=== PATIENT | female | born 1940 | race Caucasian/White ===

== ENCOUNTER 2021-07-04 16:21 | Emergency (ER) | payer OTHER ==
[~2021-07-04] VITALS: Ht 152.4 cm; Wt 52.2 kg
[2021-07-04 16:27] VITALS: BP_SYST 171
--- NOTE | 2021-07-04 16:48 | NUR ---
Patient to ER bed H1 to gown for evaluation. Side rails up.
--- NOTE | 2021-07-04 16:50 | NUR ---
Pt brought by ambulance A&Ox1, Hx of dementia, pt presents to ER post witnessed mechanical fall , hit back of head but no KO, VSS, skin pink and warm, cap refill <3, respirations even and unlabored, will cont to monitor.
--- NOTE | 2021-07-04 16:58 | NUR ---
Dr Barbour evaluating patient at this time
--- NOTE | 2021-07-04 17:15 | NUR ---
Lab at bedside for blood draw.
[2021-07-04 17:27] LABS: BASOPHILS # (AUTO) 0.1 K/uL (0.0-0.2); BASOPHILS % (AUTO) 1.8 % (0.0-2.0); EOSINOPHILS # (AUTO) 0.2 K/uL (0.0-0.4); EOSINOPHILS % (AUTO) 4.9 % (0.0-4.0); HEMATOCRIT 32.7 % (36-48); HEMOGLOBIN 11.2 g/dL (12.0-16.0); LYMPHOCYTES # (AUTO) 1.8 K/uL (1.0-5.5); LYMPHOCYTES % (AUTO) 35.4 % (20.5-51.5); MEAN CORPUSCULAR HEMOGLOBIN 32 pg (27-31); MEAN CORPUSCULAR HGB CONC 34 % (32-36); MEAN CORPUSCULAR VOLUME 93 fL (79.0-98.0); MONOCYTES # (AUTO) 0.5 K/uL (0.0-1.0); MONOCYTES % (AUTO) 10.3 % (1.7-9.3); NEUTROPHILS # (AUTO) 2.4 K/uL (1.8-7.7); NEUTROPHILS % (AUTO) 47.6 % (40.0-70.0); PLATELET COUNT (AUTO) 160 K/uL (130-430); RED CELL DISTRIBUTION WIDTH 14.9 % (9.0-15.0); WHITE BLOOD COUNT (AUTO) 5.1 K/uL (4.8-10.8)
[2021-07-04 17:35] LABS: ANION GAP 4 (5-15); CALCIUM 8.4 mg/dL (8.4-11.0); CHLORIDE 106 mmol/L (98-107); CREATININE 1.14 mg/dL (0.55-1.30); GLUCOSE 147 mg/dL (70-99); POTASSIUM 3.8 mmol/L (3.5-5.1); SODIUM SERUM 141 mmol/L (136-145); UREA NITROGEN, BLOOD 16 mg/dL (8-21)
[2021-07-04 17:44] LABS: ALANINE AMINOTRANSFERASE 41 U/L (12-78); ALBUMIN 3.1 g/dL (3.4-4.8); ASPARTATE AMINOTRANSFERASE 25 U/L (10-37); TOTAL BILIRUBIN 0.3 mg/dL (0.0-1.0)
[2021-07-04] MEDS ORDERED: MAGNESIUM OXIDE 400 MG TABLET PO ONE (18:45)
--- NOTE | 2021-07-04 19:10 | NUR ---
Care of patient endorsed to FABIAN Porter. Pt currently resting in hallway bed, no acute distress noted.
[2021-07-04 19:35] LABS: BILIRUBIN,URINE NEGATIVE (NEGATIVE); CLARITY/URINE CLEAR (CLEAR); COLOR,URINE YELLOW (YELLOW); GLUCOSE,URINE NEGATIVE (NEGATIVE); KETONES,URINE NEGATIVE (NEGATIVE); LEUKOCYTE ESTERASE ,URINE NEGATIVE (NEGATIVE); NITRITE, URINE NEGATIVE (NEGATIVE); PROTEIN URINE 2+ (NEGATIVE); UROBILINOGEN,URINE 0.2 (0.2-1.0)
[2021-07-04 19:55] LABS: BLOOD, URINE TRACE (NEGATIVE)
[2021-07-04 20:22] LABS: BACTERIA,URINE RARE /HPF (None Seen); RBC,URINE 0-3 /HPF (0-3); WBC,URINE NONE SEEN /HPF (0-3)
[2021-07-04 20:29] VITALS: BP_SYST 171
--- NOTE | 2021-07-04 20:30 | NUR ---
Patient given written and verbal discharge instructions and verbalizes understanding. DR. GRAHAM RIVERS MD discussed with patient the results and treatment provided. Patient in stable condition. ID arm band removed. Patient educated on pain management and to follow up with PMD. Pain Scale 0/10. Opportunity for questions provided and answered. Medication side effect fact sheet provided.
== END 2021-07-04 20:29 | disposition home or self-care (01) ==
LOC: SED 16:21
DX: S09.90XA Unspecified injury of head, initial encounter (principal); R94.31 Abnormal electrocardiogram [ECG] [EKG]; W18.39XA Other fall on same level, initial encounter; Y93.89 Activity, other specified; Y92.89 Other specified places as the place of occurrence of the external cause; Y99.8 Other external cause status
CPT/HCPCS: 36415; 70450-TC; 72125-TC; 76376; 80053; 81000; 84484; 85025; 93005; 99285

== ENCOUNTER 2021-07-09 13:18 | Inpatient (IN) | payer OTHER, SELFPAY ==
[~2021-07-09] VITALS: Ht 144.8 cm; Wt 52.2 kg
[2021-07-09 13:25] VITALS: BP_SYST 133
[2021-07-09] MEDS ORDERED: NACL 0.9% 1,000 ML IV ONE (13:30)
--- NOTE | 2021-07-09 13:30 | NUR ---
Patient to ER bed 2 to gown for evaluation. Side rails up. Report given to Sonu PERALTA.
--- NOTE | 2021-07-09 13:40 | NUR ---
DR KING IN TO ASSESS, PT LETHARGIC, AAOX3, CLEAR SPEECH IN FULL COMPLETE SENTECES
[2021-07-09 14:03] LABS: BASOPHILS # (AUTO) 0.1 K/uL (0.0-0.2); BASOPHILS % (AUTO) 2.5 % (0.0-2.0); EOSINOPHILS # (AUTO) 0.2 K/uL (0.0-0.4); EOSINOPHILS % (AUTO) 5.1 % (0.0-4.0); HEMATOCRIT 30.6 % (36-48); HEMOGLOBIN 10.5 g/dL (12.0-16.0); LYMPHOCYTES # (AUTO) 1.2 K/uL (1.0-5.5); MEAN CORPUSCULAR HEMOGLOBIN 32 pg (27-31); MEAN CORPUSCULAR HGB CONC 34 % (32-36); MEAN CORPUSCULAR VOLUME 93 fL (79.0-98.0); MONOCYTES # (AUTO) 0.4 K/uL (0.0-1.0); MONOCYTES % (AUTO) 8.1 % (1.7-9.3); NEUTROPHILS # (AUTO) 2.6 K/uL (1.8-7.7); NEUTROPHILS % (AUTO) 57.3 % (40.0-70.0); PLATELET COUNT (AUTO) 150 K/uL (130-430); RED CELL DISTRIBUTION WIDTH 14.7 % (9.0-15.0); WHITE BLOOD COUNT (AUTO) 4.6 K/uL (4.8-10.8)
--- NOTE | 2021-07-09 14:05 | NUR ---
CXR, LABS EKG COMPLETED, PT TOLERATED WELL. RESP UNLABORED, EASILY AROUSED
[2021-07-09 14:10] LABS: BILIRUBIN,URINE NEGATIVE (NEGATIVE); CLARITY/URINE CLEAR (CLEAR); COLOR,URINE YELLOW (YELLOW); GLUCOSE,URINE NEGATIVE (NEGATIVE); KETONES,URINE NEGATIVE (NEGATIVE); LEUKOCYTE ESTERASE ,URINE NEGATIVE (NEGATIVE); NITRITE, URINE NEGATIVE (NEGATIVE); PROTEIN URINE 1+ (NEGATIVE); UROBILINOGEN,URINE 0.2 (0.2-1.0)
[2021-07-09 14:17] LABS: BLOOD, URINE TRACE (NEGATIVE)
[2021-07-09 14:19] LABS: BACTERIA,URINE None Seen /HPF (None Seen); MUCUS,URINE None Seen /LPF (None Seen); RBC,URINE 0-3 /HPF (0-3); WBC,URINE NONE SEEN /HPF (0-3)
[2021-07-09 14:28] LABS: ANION GAP 10 (5-15); CALCIUM 8.4 mg/dL (8.4-11.0); CHLORIDE 107 mmol/L (98-107); CREATININE 1.22 mg/dL (0.55-1.30); GLUCOSE 143 mg/dL (70-99); POTASSIUM 3.7 mmol/L (3.5-5.1); SODIUM SERUM 144 mmol/L (136-145); UREA NITROGEN, BLOOD 18 mg/dL (8-21)
[2021-07-09 14:32] LABS: ALANINE AMINOTRANSFERASE 24 U/L (12-78); ASPARTATE AMINOTRANSFERASE 18 U/L (10-37); TOTAL BILIRUBIN 0.2 mg/dL (0.0-1.0)
--- NOTE | 2021-07-09 14:39 | NUR ---
CALM, ALERT, RESP UNLABORED, SKIN WARM AND DRY. COMMUNICATES CLEARLY
[2021-07-09] MEDS ORDERED: MAGNESIUM SULFATE 1 GM/2 ML VIAL IVP ONE (15:00)
[2021-07-09 15:25] LABS: FREE T4 (FREE THYROXINE) 1.1 ng/dl (0.8-1.5); THYROID STIMULATING HORMONE 2.01 uIu/mL (0.36-3.74)
[2021-07-09 15:26] LABS: ACETAMINOPHEN < 1 ug/mL (1-30)
--- NOTE | 2021-07-09 15:54 | NUR ---
Admit to M/S UNDER PALIWAL DX SYNCOPE
[2021-07-09] MEDS ORDERED: NALOXONE HCL 0.4 MG/ML AMP (NARCAN) IVP PRN ×2 (16:15)
[2021-07-09] MEDS ORDERED: HYDROcodone/ACETAMIN 10-325 MG TAB PO PRN (16:15)
[2021-07-09] MEDS ORDERED: HYDROcodone/ACETAMIN 5-325 MG TAB (NORCO/ VICODIN) PO PRN (16:15)
[2021-07-09] MEDS ORDERED: ACETAMINOPHEN 325 MG TABLET PO PRN (16:15)
--- NOTE | 2021-07-09 16:39 | NUR ---
DR MCDOWELL AT BEDSIDE TO ASSESS
[2021-07-09] MEDS ORDERED: LORA-259 PO (17:10)
[2021-07-09] MEDS ORDERED: OMEP40CA20 PO (17:10)
[2021-07-09] MEDS ORDERED: GALA4TAB PO (17:10)
[2021-07-09] MEDS ORDERED: METO50TA7 PO (17:10)
[2021-07-09] MEDS ORDERED: MORP15TA60 PO (17:10)
[2021-07-09] MEDS ORDERED: POTA-88 PO (17:10)
[2021-07-09] MEDS ORDERED: ISO10 PO (17:10)
[2021-07-09] MEDS ORDERED: ESCI10TA PO (17:10)
[2021-07-09] MEDS ORDERED: OXYC10TA56 PO (17:10)
[2021-07-09] MEDS ORDERED: ROSU40TA PO (17:10)
[2021-07-09] MEDS ORDERED: NIFE60TA83 PO (17:10)
[2021-07-09] MEDS ORDERED: CLOP75TA32 PO (17:10)
[2021-07-09] MEDS ORDERED: HYDR-3698 PO (17:10)
--- NOTE | 2021-07-09 17:55 | NUR ---
CALM, ALERT, INCREASED MENTTION RESP UNLABORED, NO DISTRESS
--- NOTE | 2021-07-09 18:35 | NUR ---
REPOSITIONED FOR COMFORT.
--- NOTE | 2021-07-09 18:58 | NUR ---
CALL TO DAUGHTER WHO IS IN ROUTE TO DISCUSS ADMISSION . PT REQUESTING TO GO HOME
--- NOTE | 2021-07-09 19:12 | NUR ---
DAUGHTER AT BEDSIDE
--- NOTE | 2021-07-09 19:15 | NUR ---
Received report from FABIAN Ascencio and continue care of patient.
--- NOTE | 2021-07-09 20:11 | NUR ---
Assisted patient to bedside commode.
--- NOTE | 2021-07-09 20:42 | NUR ---
Patient resting quietly. No acute distress noted. Vital signs within normal range.
--- NOTE | 2021-07-09 21:06 | NUR ---
Patient will be admitted to care of Dr. Vila. Admitted to TELE unit. Will go to room 103A. Belongings list completed. Complete and up to date summary report printed. SBAR report to be given at bedside with opportunity for questions.
--- NOTE | 2021-07-09 21:30 | NUR ---
ADMISSION NOTE Received patient from ER via gurtheron, received report from march. Patient admitted with diagnosis of syncope. Patient oriented to hospital routine, call light, toileting and safety-patient verbalized understanding.
[2021-07-09 22:19] VITALS: BP_SYST 136
[2021-07-09 23:01] VITALS: BP_SYST 136
[2021-07-10 00:19] VITALS: BP_SYST 159
--- NOTE | 2021-07-10 00:58 | NUR ---
PAGED FOR CONSULT JEANNE MCGHEE ORDERING PHYSICIAN: DR. MCDOWELL REASON FOR CONSULT: NEURO DIALED: [phone] SPOKE TO: CALLED MULTIPLE TIMES NO ANSWER AND UNABLE TO LEAVE VOICEMAIL DUE TO MAILBOX FULL
--- NOTE | 2021-07-10 01:02 | NUR ---
PAGED FOR CONSULT RAFITA GREER ORDERING PHYSICIAN: REASON FOR CONSULT: SYNCOPE DIALED:[phone] SPOKE TO: MALORIE ESPANA STATED THAT SHE CANNOT PAGED RAFITA GREER HE WAS NOT AVAILABLE TO BE PAGED DUE TO HER NOT HAVING ACCESS TO HIM. LOOKED UP DOCTOR IN HOSPITAL PHYSICIANS LIST AND NO NARDA GREER IN PACKET.
[2021-07-10] MEDS: D5/0.45 NS 1,000 ML IV SCH ×2 (02:15→12:17)
--- NOTE | 2021-07-10 06:12 | NUR ---
PAGED FOR CONSULT JEANNE MCGHEE ORDERING PHYSICIAN: DR. MCDOWELL REASON FOR CONSULT: NEURO DIALED: [phone] SPOKE TO: SENT TEXT TO DIRECTLY
[2021-07-10 06:56] LABS: EOSINOPHILS # (AUTO) 0.3 K/uL (0.0-0.4); EOSINOPHILS % (AUTO) 5.1 % (0.0-4.0); HEMATOCRIT 34.7 % (36-48); HEMOGLOBIN 11.9 g/dL (12.0-16.0); LYMPHOCYTES % (AUTO) 20.3 % (20.5-51.5); MEAN CORPUSCULAR HEMOGLOBIN 32 pg (27-31); MEAN CORPUSCULAR HGB CONC 34 % (32-36); MEAN CORPUSCULAR VOLUME 92 fL (79.0-98.0); MONOCYTES # (AUTO) 0.6 K/uL (0.0-1.0); MONOCYTES % (AUTO) 12.3 % (1.7-9.3); NEUTROPHILS # (AUTO) 3.1 K/uL (1.8-7.7); NEUTROPHILS % (AUTO) 62.3 % (40.0-70.0); PLATELET COUNT (AUTO) 157 K/uL (130-430); RED BLOOD CELL COUNT(AUTO) 3.78 MIL/uL (4.2-6.2); RED CELL DISTRIBUTION WIDTH 14.1 % (9.0-15.0)
--- NOTE | 2021-07-10 09:23 | NUR ---
DR ALVAREZ 8TH GRADE TEACHER CAME
[2021-07-10 09:24] VITALS: BP_SYST 171
[2021-07-10] MEDS ORDERED: DOCUSATE SODIUM 100 MG CAPSULE PO PRN (09:45)
--- NOTE | 2021-07-10 10:00 | NUR ---
NEW IV SITE PLACED ON THE RT FOREARM #22. PATENT/DRY.
[2021-07-10 10:48] LABS: ALANINE AMINOTRANSFERASE 24 U/L (12-78); ALBUMIN 3.1 g/dL (3.4-4.8); ANION GAP 8 (5-15); ASPARTATE AMINOTRANSFERASE 21 U/L (10-37); CALCIUM 8.8 mg/dL (8.4-11.0); CHLORIDE 105 mmol/L (98-107); CREATININE 0.98 mg/dL (0.55-1.30); GLUCOSE 85 mg/dL (70-99); PHOSPHORUS 3.6 mg/dL (2.7-4.5); POTASSIUM 3.4 mmol/L (3.5-5.1); SODIUM SERUM 142 mmol/L (136-145); TOTAL BILIRUBIN 0.2 mg/dL (0.0-1.0); UREA NITROGEN, BLOOD 12 mg/dL (8-21)
--- NOTE | 2021-07-10 10:53 | NUR ---
WORKING ON SNF BED FOR TODAY. LEFT VM WITH DTR ROXY TO DETERMINE IF PT HAS BEEN VACCINATED. IF DTR VISITS AT THE HOSPITAL, PLEASE HAVE HER CALL ME CAMMIE AT [phone]
--- NOTE | 2021-07-10 11:00 | NUR ---
IV ACCESS PULLED OUT. PLACED A NEW ONE ON THE LEFT FOREARM #22.
[2021-07-10] MEDS: LORazepam 2 MG/ML VIAL IVP PRN ×2 (12:54→17:45)
--- NOTE | 2021-07-10 13:00 | NUR ---
IV ACCESS PULLED OUT AGAIN. PLACED A NEW ONE ON THE RT FOREARM #22.
[2021-07-10 13:21] VITALS: BP_SYST 192
--- NOTE | 2021-07-10 15:59 | NUR ---
radhika called update for her mom today. said still thinking of what snf her mom will go to. assisted to come back to bed from the window. patient bit weak while walking.
[2021-07-10 16:02] VITALS: BP_SYST 164
--- NOTE | 2021-07-10 17:00 | NUR ---
ROXY MEJIA CALLED FOR THE RESTRAINT AND SEEN PATIENT IN THE FLOOR SITTING DOWN UNDER THE BEDSIDE TABLE. NEAR THE WINDOW.
--- NOTE | 2021-07-10 17:45 | NUR ---
NEW IV ACCESS PLACED ON THE LEFT WRIST #22.
--- NOTE | 2021-07-10 18:00 | NUR ---
PUT BACK ON SOFT WRIST RESTRAINT. TAE TRIED TO FED THE PATIENT, BUT AT FIRST REFUSES. NOW EATING LITTLE BY LITTLE
--- NOTE | 2021-07-10 18:01 | NUR ---
CALLED DR JEREMIAS BENDER FOR PATIENT FOUND ON THE FLOOR, VITALS SIGNS STABLE AFEBRILE BP 150/64, HR 96, RESPIRATION 20, TEMP 97. AWAITING TO CALL BACK. NO BLEEDING NOR PAIN NOTED. PATIENT VERBALIZED NO PAIN NOTED. ABLE TO PUT A NEW IV ACCESS ON THE LEFT WRIST #22. SALINE LOCK. PATENT/DRY
--- NOTE | 2021-07-10 18:18 | NUR ---
DR MCDOWELL CALLED AND NO ORDER MADE SO FAR.
--- NOTE | 2021-07-10 19:26 | NUR ---
ENDORSED TO INCOMING NURSE TALAT PERALTA. HOURLY ROUNDING IMPERATIVE FOR THIS PATIENT. CALL LIGHTS WITHIN REACH. BED LOW POSITION, ALARMED AND LOCKED. WILL CONTINUE TO MONITOR PATIENTS STATUS. 3 SIDE RAILS UP. POST FALL ASSESSMENT DONE. POST FALL HUDDLE DONE.
--- NOTE | 2021-07-10 19:30 | NUR ---
Opening note Pt is lying in bed restless. No s/s of respiratory distress noted. Fall and safety precautions are in place with bed in lowest position and bed alarm on. Soft wrist restraints are in place. Will continue to monitor
[2021-07-10 20:00] VITALS: BP_SYST 165
[2021-07-11] MEDS: LORazepam 2 MG/ML VIAL IVP PRN (00:06)
--- NOTE | 2021-07-11 00:24 | NUR ---
New IV placement right forearm 24G, intact and patent. no s/s of infiltration
[2021-07-11 00:54] VITALS: BP_SYST 163
--- NOTE | 2021-07-11 00:54 | NUR ---
Spoke with Dr Prince regarding pt high blood pressure (164/89). New orders received, will carry out
[2021-07-11] MEDS ORDERED: DIPHENHYDRAMINE INJ 50 MG/ML VIAL IVP ONE (01:00)
[2021-07-11] MEDS ORDERED: hydrALAZINE HCL 20 MG/ML VIAL IVP ONE (01:00)
--- NOTE | 2021-07-11 03:30 | NUR ---
RN rounds Pt is still restless. no s/s of respiratory distress. Fall and safety precautions in place. No needs at this time. Will continue to monitor
[2021-07-11] MEDS: D5/0.45 NS 1,000 ML IV SCH ×3 (05:11→15:20)
--- NOTE | 2021-07-11 06:33 | NUR ---
Closing note Pt is lying in bed still restless. No s/s of acute distress noted. IV site is intact and patent with fluids running at ordered rate. Bed is locked in lowest position with bed in lowest position, bed alarm on and call light within reach. All needs met throughout shift. Will continue to monitor until endorsed to day shift
[2021-07-11 08:00] VITALS: BP_SYST 164
--- NOTE | 2021-07-11 08:00 | NUR ---
Initial Note Patient asleep in bed, wakes to tactile stimuli. Oriented to person and situation. Noted confusion to place and time. Patient vomiting and soiled with urine and BM. Provided justa and oral care and changed patient. Noted restlessness and lethargy, bed locked in lowest position and bed alarm on. Will continue to monitor.
[2021-07-11] MEDS ORDERED: ASPIRIN 325 MG TABLET (ECOTRIN) PO ONE (08:32)
[2021-07-11] MEDS: ONDANSETRON HCL 4 MG/2 ML VIAL IVP PRN ×2 (08:44→18:15)
[2021-07-11] MEDS: CLOPIDOGREL BISULFATE 75 MG TABLET PO SCH ×2 (09:00→10:30)
[2021-07-11] MEDS ORDERED: METOPROLOL SUCCINATE 25 MG TAB.SR.24H (TOPROL XL) PO SCH (09:00)
[2021-07-11] MEDS: NIFEdipine 30 MG TAB.ER.24 PO SCH ×2 (09:00→10:28)
--- NOTE | 2021-07-11 09:15 | NUR ---
MD Rounds Dr. Keene at bedside to see patient.
--- NOTE | 2021-07-11 09:20 | NUR ---
PT Physical therapy at bedside with patient.
[2021-07-11] MEDS ORDERED: CARVEDILOL 6.25 MG TABLET (COREG) PO ONE (10:30)
--- NOTE | 2021-07-11 11:11 | NUR ---
DC Restraints Removed restraints per MD order. Will continue to monitor patient for safety. Continue fall precautions.
--- NOTE | 2021-07-11 14:00 | NUR ---
Notes Patient has room available at [facility]. notified.
[2021-07-11 14:24] LABS: BASOPHILS # (AUTO) 0.1 K/uL (0.0-0.2); BASOPHILS % (AUTO) 0.7 % (0.0-2.0); HEMATOCRIT 41.4 % (36-48); LYMPHOCYTES # (AUTO) 0.8 K/uL (1.0-5.5); LYMPHOCYTES % (AUTO) 4.8 % (20.5-51.5); MEAN CORPUSCULAR HEMOGLOBIN 31 pg (27-31); MEAN CORPUSCULAR HGB CONC 34 % (32-36); MEAN CORPUSCULAR VOLUME 92 fL (79.0-98.0); MONOCYTES # (AUTO) 0.7 K/uL (0.0-1.0); MONOCYTES % (AUTO) 4.1 % (1.7-9.3); NEUTROPHILS # (AUTO) 14.6 K/uL (1.8-7.7); NEUTROPHILS % (AUTO) 90.4 % (40.0-70.0); PLATELET COUNT (AUTO) 185 K/uL (130-430); RED BLOOD CELL COUNT(AUTO) 4.51 MIL/uL (4.2-6.2); RED CELL DISTRIBUTION WIDTH 14.8 % (9.0-15.0); WHITE BLOOD COUNT (AUTO) 16.2 K/uL (4.8-10.8)
[2021-07-11 14:41] VITALS: BP_SYST 192
[2021-07-11 14:47] LABS: ANION GAP 12 (5-15); CALCIUM 8.8 mg/dL (8.4-11.0); CHLORIDE 99 mmol/L (98-107); CREATININE 0.96 mg/dL (0.55-1.30); GLUCOSE 158 mg/dL (70-99); SODIUM SERUM 137 mmol/L (136-145); UREA NITROGEN, BLOOD 12 mg/dL (8-21)
[2021-07-11 15:10] LABS: POTASSIUM 2.8 mmol/L (3.5-5.1)
--- NOTE | 2021-07-11 15:10 | NUR ---
Lab values Received critical lab value of Potassium 2.8 from Kathy. Lacie Keene.
[2021-07-11] MEDS ORDERED: hydrALAZINE HCL 20 MG/ML VIAL IVP PRN (15:15)
[2021-07-11] MEDS ORDERED: hydrALAZINE HCL 25 MG TABLET PO ONE (15:15)
[2021-07-11 15:39] VITALS: BP_SYST 159
--- NOTE | 2021-07-11 15:49 | NUR ---
CRITICAL LAB: Melly from Laboratory called with critical lab value Potassium 2.8. Medical record number and patient name verified. Read back of values done. Dr. Keene notified of value. Will implement orders given at this time. Addendum: 07/11/21 at 1744 by Kristi Chong RN Dr. Keene notified of WBC 16.2. No orders given.
--- NOTE | 2021-07-11 15:49 | NUR ---
HIGH ALERT NOTE: Called Dr. Keene back at identified within the medical roster to verify physician authenticity.
--- NOTE | 2021-07-11 16:00 | NUR ---
Notes Patient asleep in bed, wakes with occasional restlessness and confusion. Will continue to reorient patient. Safety precautions are in place. Daughter Amrita notified of updates. Will continue to monitor. Bed in lowest position and alarm on. Call light in reach and continuous reorientation provided on use.
--- NOTE | 2021-07-11 16:00 | NUR ---
Notes patient's throw up again, Dr. Keene made aware.
[2021-07-11] MEDS ORDERED: POTASSIUM CHLORIDE 40 MEQ in NS 250 ML IV ONE (17:00)
--- NOTE | 2021-07-11 18:40 | NUR ---
Closing Note Patient lying in bed restless. No vomiting at this time. Spoke with daughter Amrita regarding discharge planning if patient stops vomiting. Verbalized understanding. Bed in lowest position with alarm on. Will endorse to night nurse.
[2021-07-11 20:00] VITALS: BP_SYST 151
[2021-07-11] MEDS: hydrALAZINE HCL 25 MG TABLET PO SCH (22:05)
[2021-07-11] MEDS: CARVEDILOL 6.25 MG TABLET (COREG) PO SCH (22:06)
[2021-07-12] MEDS: D5/0.45 NS 1,000 ML IV SCH ×2 (00:56→16:58)
[2021-07-12 01:24] VITALS: BP_SYST 159
--- NOTE | 2021-07-12 06:50 | NUR ---
ALL PT'S NEEDS WERE ATTENDED TO. PT IS VERY CONFUSED, BUT ORIENTED TO HER NAME ONLY. PT IS ALSO COMBATIVE. PT PULLED OUT HER IV LAST NIGHT AND ALSO BIT THE IV TUBING. RN SAT OUTSIDE PT'S ROOM TO DOCUMENT ON HER PTS WHILE WATCHING PT. PT MADE SEVERAL ATTEMPTS TO GET OUT OF BED AND TRIGGERED BED ALARM MULTIPLE TIMES. IV WAS RESTARTED IN RIGHT WRIST WITH 22G ANGIOCATH X1 THIS SHIFT. WILL ENDORSE TO DAY SHIFT NURSE.
[2021-07-12 07:06] LABS: BASOPHILS % (AUTO) 0.2 % (0.0-2.0); HEMATOCRIT 41.4 % (36-48); HEMOGLOBIN 14.3 g/dL (12.0-16.0); LYMPHOCYTES # (AUTO) 1.4 K/uL (1.0-5.5); LYMPHOCYTES % (AUTO) 10.3 % (20.5-51.5); MEAN CORPUSCULAR HEMOGLOBIN 32 pg (27-31); MEAN CORPUSCULAR HGB CONC 34 % (32-36); MEAN CORPUSCULAR VOLUME 92 fL (79.0-98.0); MONOCYTES # (AUTO) 0.8 K/uL (0.0-1.0); MONOCYTES % (AUTO) 5.9 % (1.7-9.3); NEUTROPHILS % (AUTO) 83.6 % (40.0-70.0); PLATELET COUNT (AUTO) 195 K/uL (130-430); RED BLOOD CELL COUNT(AUTO) 4.52 MIL/uL (4.2-6.2); RED CELL DISTRIBUTION WIDTH 14.8 % (9.0-15.0); WHITE BLOOD COUNT (AUTO) 13.2 K/uL (4.8-10.8)
[2021-07-12 07:27] LABS: ANION GAP 13 (5-15); CALCIUM 8.9 mg/dL (8.4-11.0); CHLORIDE 103 mmol/L (98-107); CREATININE 1.23 mg/dL (0.55-1.30); GLUCOSE 147 mg/dL (70-99); POTASSIUM 3.1 mmol/L (3.5-5.1); SODIUM SERUM 140 mmol/L (136-145); UREA NITROGEN, BLOOD 15 mg/dL (8-21)
[2021-07-12 07:32] LABS: ALANINE AMINOTRANSFERASE 47 U/L (12-78); ALBUMIN 3.3 g/dL (3.4-4.8); ASPARTATE AMINOTRANSFERASE 85 U/L (10-37); TOTAL BILIRUBIN 0.5 mg/dL (0.0-1.0)
--- NOTE | 2021-07-12 07:50 | NUR ---
Opening note Patient is laying in bed, A&Ox2 complains of nausea, will provide PRN medication. IV is infusing no signs or symptoms of infiltration. No signs or symptoms of respiratory distress, patient does not complain of pain. Unable to educate patient on plan of care, due to cognitive status. Bed is in lowest position, fall and aspiration precautions are in place. Will continue to monitor.
--- NOTE | 2021-07-12 07:56 | NUR ---
Opening note Patient is laying bed A&Ox2, difficult to reorient, no signs or symptoms of respiratory distress, IV is infusing, no signs or symptoms of infiltration. Patient complains of nausea and abdominal pain, will provide PRN medication and inform MD. Unable to effectively educate paln of care due to poor concentration from patient, will reenforce teaching. Bed is in lowest position, call light within reach, fall and aspiration precautions are in place. Will continue to monitor.
[2021-07-12 08:00] VITALS: BP_SYST 160
[2021-07-12] MEDS: CARVEDILOL 6.25 MG TABLET (COREG) PO SCH ×2 (08:38→22:10)
[2021-07-12] MEDS: hydrALAZINE HCL 25 MG TABLET PO SCH ×2 (08:38→22:10)
[2021-07-12] MEDS: NIFEdipine 30 MG TAB.ER.24 PO SCH (08:38)
[2021-07-12] MEDS: CLOPIDOGREL BISULFATE 75 MG TABLET PO SCH (08:38)
[2021-07-12] MEDS: ONDANSETRON HCL 4 MG/2 ML VIAL IVP PRN (08:49)
--- NOTE | 2021-07-12 08:50 | NUR ---
RN NOTE Patient refuses to keep telemonitor on, attempted to provide education, patient is agitated. Will continue to reenforce education. Addendum: 07/12/21 at 1202 by Lily Segovia RN is aware
--- NOTE | 2021-07-12 08:54 | NUR ---
Nutrition Update Wally Scale 14 noted. Pt admitted for Syncope Diet: Cardiac BMI: 24.9 kg/m2 RD to follow per nutrition care standards.
[2021-07-12] MEDS ORDERED: NACL 0.9% 500 ML IV SCH (09:30)
[2021-07-12] MEDS ORDERED: KCL 40 mEq in 100 mL (PREMIX) 100 ML IV ONE (09:30)
[2021-07-12] MEDS ORDERED: POTASSIUM CHLORIDE 40 MEQ in NS 250 ML IV ONE (10:00)
--- NOTE | 2021-07-12 10:20 | NUR ---
RN note Patient ambulated with PT, attempted to walk in [address] way but patient did not tolerate well.
--- NOTE | 2021-07-12 10:33 | NUR ---
CONSULTATION PAGED REASON FOR CONSULTATION:ABDOMINAL PAIN WAS CONSULT CALLED?Y PERSON WHO WAS NOTIFIED:BENJAMÍN CONSULTING PHYSICIAN:KENROY ARANDA INTEGRATION DEVELOPER SPECIALTY:GI INTEGRATION DEVELOPER PHONE NUMBER:[phone] REQUESTING PHYSICIAN:MARIA EUGENIA BOLTON
[2021-07-12 12:41] VITALS: BP_SYST 153
--- NOTE | 2021-07-12 13:50 | NUR ---
Rn note Patient taken to radiology for abdominal CT
--- NOTE | 2021-07-12 15:03 | NUR ---
HIGH ALERT NOTE: Called Dr. BIANCHI back at [phone] identified within the medical roster to verify physician authenticity for radha
[2021-07-12] MEDS ORDERED: HALOPERIDOL LACTATE 5 MG/ML VIAL IVP ONE (15:15)
[2021-07-12 15:19] VITALS: BP_SYST 209
--- NOTE | 2021-07-12 15:48 | NUR ---
RN note Patient telemonitor placed to monitor after haldol administration.
--- NOTE | 2021-07-12 18:25 | NUR ---
Closing note Patient is asleep in bed laying bed A&Ox2, no signs or symptoms of respiratory distress, IV is infusing, no signs or symptoms of infiltration. all needs were met. Bed is in lowest position, call light within reach, fall and aspiration precautions are in place. Will endorse report to night auditor.
[2021-07-12 20:00] VITALS: BP_SYST 156
[2021-07-13] VITALS (7 sets, daily range): BP systolic 136–204
--- NOTE | 2021-07-13 06:49 | NUR ---
PT IS AWAKE AND RESTING COMFORTABLY IN BED. IV SITE IN RIGHT WRIST WAS INFILTRATED AND THE ANGIOCATH WAS REMOVED INTACT. NEW IV LINE WAS RESTARTED IN LEFT WRIST WITH ANGIOCATH 24G. ALL PT'S NEEDS WERE ATTENDED TO. WILL ENDORSE TO DAY SHIFT NURSE.
--- NOTE | 2021-07-13 08:00 | NUR ---
AM ASSESSMENT. PATIENT AWAKENED TO VERBAL STIMULI, VITAL SIGNS CHECKED, BP 204/116, TO THE RIGHT UPPER ARM AND RECHECKED BP FROM OTHER EXTREMITY, READING STILL HIGH. MEDICATED PT WITH ALL HER TABS.
[2021-07-13] MEDS: hydrALAZINE HCL 25 MG TABLET PO SCH ×2 (08:19→19:49)
[2021-07-13] MEDS: NIFEdipine 30 MG TAB.ER.24 PO SCH (08:20)
[2021-07-13] MEDS: CARVEDILOL 6.25 MG TABLET (COREG) PO SCH ×2 (08:20→19:48)
[2021-07-13] MEDS: CLOPIDOGREL BISULFATE 75 MG TABLET PO SCH (08:20)
--- NOTE | 2021-07-13 08:40 | NUR ---
MD DR ALVAREZ AT BEDSIDE, AWARE OF HIGH BP, RECHECKED BP USING RADIAL SIDE, 136/64.
--- NOTE | 2021-07-13 10:00 | NUR ---
ACTIVITY PHYSICAL THERAPIST IN THE ROOM, PT SLEEPY AT THIS HOUR.
--- NOTE | 2021-07-13 10:10 | NUR ---
Jluis.I. CONSULT DR PLUMMER AT BEDSIDE EXAMINING PT.
[2021-07-13] MEDS ORDERED: PANTOPRAZOLE SODIUM 40 MG TAB PO ONE (11:30)
--- NOTE | 2021-07-13 12:48 | NUR ---
patient discharging to [facility] room [address] [place] [address] Medic 1 ambulance greens picker 5:30 PM [phone] called and spoke with Gill cardiac care unit nurse, informed her of facility Addendum: 07/13/21 at 1330 by Lawanda Pike RN tracking number # [id number] Addendum: 07/13/21 at 1331 by Lawanda Pike RN medic 1 ambulance tracking number # [id number]
--- NOTE | 2021-07-13 13:32 | NUR ---
FAMILY PT'S DAUGHTER ROXY CALLED, UPDATE ON PT'S STATUS GIVEN. SHE STATED THAT SHE HAD SPOKE TO THE IS SUPPORT ANALYST THIS AM. PT WILL BE DISCHARGED TO [facility] TODAY, FAMILY UPSET THAT SHE WAS NOT TOLD ABOUT THIS TRANSFER. ATTEMPTED TO REACH OUT TO STITCH WHEELER ON DUTY AT THIS HOUR.
--- NOTE | 2021-07-13 14:12 | NUR ---
TRENCHING MACHINE OPERATOR CAME IN AND SPOKE TO PATIENT. SHE'S UNCOOPERATIVE, REFUSED THE TEST.
--- NOTE | 2021-07-13 14:57 | NUR ---
spoke with patient cyrus Diez , she agrees to transfer to [facility]. spoke with Dr. Keene he will reach out to Cyrus Obando [phone].
--- NOTE | 2021-07-13 15:25 | NUR ---
FAMILY CALLED DAUGHTER ROXY AND SHE ACKNOWLEDGED THE TRANSFER OF PT TO [facility].
--- NOTE | 2021-07-13 15:28 | NUR ---
[facility] WITH [facility], THE ROOM ASSIGNED TO PT IS [address]. FINALIZED WITH [facility], WHOLESALE BUYER TIME IS 1700. SPOKE TO WILL
--- NOTE | 2021-07-13 17:00 | NUR ---
REPORT. CALLED [facility], REPORT GIVEN TO URIAH SAUCEDA.
--- NOTE | 2021-07-13 19:30 | NUR ---
SBAR received SBAR report from Neelima Arguello RN. Patient resting in bed, awake, no distress. No IV, it was removed by FABIAN Ortez. Bed is locked in lowest position, side rails up and call light w/in reach.
--- NOTE | 2021-07-13 22:10 | NUR ---
PT TRANSFERRED Report given to IVA Rodrigues from [facility]. Transfer packet with Transfer Orders and Medication Reconciliation form given to EMT. Exitcare provided. [facility] ID band removed, replaced with ID band with pt's name and . No belongings with patient. Patient left floor via gurney escorted by EMT in no distress.
[2021-07-14] MEDS ORDERED: PANTOPRAZOLE SODIUM 40 MG TAB PO SCH (09:00)
== END 2021-07-13 22:10 | DRG 73 ==
LOC: SED 13:18 → STU 15:52
PROVIDERS: ADMIT Internal Medicine Hospice and Palliative Medicine; ATTEND Internal Medicine Hospice and Palliative Medicine
DX: G90.8 Other disorders of autonomic nervous system (principal); G93.41 Metabolic encephalopathy; E44.0 Moderate protein-calorie malnutrition; F03.90 Unspecified dementia, unspecified severity, without behavioral disturbance, psychotic disturbance, mood disturbance, and anxiety; I10 Essential (primary) hypertension; M19.90 Unspecified osteoarthritis, unspecified site; G89.29 Other chronic pain; R53.81 Other malaise; D64.9 Anemia, unspecified; D72.819 Decreased white blood cell count, unspecified; R73.9 Hyperglycemia, unspecified; E78.5 Hyperlipidemia, unspecified; I70.90 Unspecified atherosclerosis; Z20.822 Contact with and (suspected) exposure to COVID-19; Z68.24 Body mass index [BMI] 24.0-24.9, adult
CPT/HCPCS: 36415; 70450-TC; 71045; 72125-TC; 72128; 72192-TC; 74018; 76376; 80048; 80053; 81000; 82550; 82962; 83605; 83735; 83880; 84100; 84439; 84443; 84484; 85025; 87040-TC; 93005; 93306; 93880; 96374; 96375; 97110-GP; 97116-GP; 97530-GP; 99285; G0378; G0480; G0481; J0360; J1200; J1630; J2060; J2405; J3475; J3480; J7050

== ENCOUNTER 2021-07-20 13:16 | Emergency (ER) | payer OTHER, SELFPAY ==
[~2021-07-20] VITALS: Ht 157.5 cm; Wt 68.0 kg
[2021-07-20 13:16] VITALS: BP_SYST 150
[~2021-07-20 13:16] MED LIST: CLOP75TA32 PO; ESCI10TA PO; GALA4TAB PO; HYDR-3698 PO; LORA-259 PO; NIFE60TA83 PO; OMEP40CA20 PO; POTA-88 PO; ROSU40TA PO
[2021-07-20 15:00] LABS: BASOPHILS # (AUTO) 0.1 K/uL (0.0-0.2); BASOPHILS % (AUTO) 0.4 % (0.0-2.0); EOSINOPHILS # (AUTO) 0.1 K/uL (0.0-0.4); EOSINOPHILS % (AUTO) 0.5 % (0.0-4.0); HEMATOCRIT 37.4 % (36-48); HEMOGLOBIN 12.8 g/dL (12.0-16.0); LYMPHOCYTES # (AUTO) 2.3 K/uL (1.0-5.5); LYMPHOCYTES % (AUTO) 14.8 % (20.5-51.5); MEAN CORPUSCULAR HEMOGLOBIN 32 pg (27-31); MEAN CORPUSCULAR HGB CONC 34 % (32-36); MEAN CORPUSCULAR VOLUME 92 fL (79.0-98.0); MONOCYTES # (AUTO) 0.9 K/uL (0.0-1.0); MONOCYTES % (AUTO) 6.1 % (1.7-9.3); NEUTROPHILS % (AUTO) 78.2 % (40.0-70.0); PLATELET COUNT (AUTO) 217 K/uL (130-430); RED BLOOD CELL COUNT(AUTO) 4.05 MIL/uL (4.2-6.2); RED CELL DISTRIBUTION WIDTH 14.6 % (9.0-15.0); WHITE BLOOD COUNT (AUTO) 15.4 K/uL (4.8-10.8)
[2021-07-20 15:08] LABS: ANION GAP 10 (5-15); CALCIUM 8.4 mg/dL (8.4-11.0); CHLORIDE 107 mmol/L (98-107); GLUCOSE 145 mg/dL (70-99); PROTHROMBIN TIME 10.4 SECS (9.5-12.5); SODIUM SERUM 141 mmol/L (136-145); UREA NITROGEN, BLOOD 32 mg/dL (8-21)
[2021-07-20 15:14] LABS: ALANINE AMINOTRANSFERASE 32 U/L (12-78); ALBUMIN 2.5 g/dL (3.4-4.8); ASPARTATE AMINOTRANSFERASE 16 U/L (10-37); LIPASE 227 U/L (73-393); TOTAL BILIRUBIN 0.3 mg/dL (0.0-1.0)
[2021-07-20] MEDS ORDERED: AMOX-426 PO (16:53)
[2021-07-20] MEDS ORDERED: cefTRIAXone 1 GM in LIDOCAINE 1%, 20 ML MDV 2.1 ML IM ONE (17:00)
[2021-07-20 22:00] VITALS: BP_SYST 131
== END 2021-07-20 22:00 ==
LOC: SED 13:16
DX: S09.8XXA Other specified injuries of head, initial encounter (principal); R10.9 Unspecified abdominal pain; Z79.899 Other long term (current) drug therapy; X58.XXXA Exposure to other specified factors, initial encounter; Y93.89 Activity, other specified; Y92.89 Other specified places as the place of occurrence of the external cause; Y99.8 Other external cause status
CPT/HCPCS: 36415; 71045; 74176; 76376; 80053; 83690; 83880; 84484; 85025; 85610; 85730; 93005; 96372; 99285; J0696; J2001

== ENCOUNTER 2022-06-08 15:57 | Emergency (ER) | payer OTHER ==
[~2022-06-08] VITALS: Ht 157.5 cm; Wt 47.6 kg
[~2022-06-08 15:57] MED LIST changes: +AMOX-426 PO
[2022-06-08 16:31] VITALS: BP_SYST 116
[2022-06-08 17:18] LABS: BASOPHILS # (AUTO) 0.1 K/uL (0.0-0.2); BASOPHILS % (AUTO) 1.1 % (0.0-2.0); EOSINOPHILS # (AUTO) 0.1 K/uL (0.0-0.4); EOSINOPHILS % (AUTO) 1.6 % (0.0-4.0); HEMATOCRIT 33.7 % (36-48); HEMOGLOBIN 11.7 g/dL (12.0-16.0); LYMPHOCYTES # (AUTO) 1.8 K/uL (1.0-5.5); MEAN CORPUSCULAR HEMOGLOBIN 32 pg (27-31); MEAN CORPUSCULAR HGB CONC 35 % (32-36); MEAN CORPUSCULAR VOLUME 93 fL (79.0-98.0); MONOCYTES # (AUTO) 0.6 K/uL (0.0-1.0); MONOCYTES % (AUTO) 7.3 % (1.7-9.3); NEUTROPHILS # (AUTO) 5.6 K/uL (1.8-7.7); PLATELET COUNT (AUTO) 181 K/uL (130-430); RED BLOOD CELL COUNT(AUTO) 3.63 MIL/uL (4.2-6.2); RED CELL DISTRIBUTION WIDTH 14.1 % (9.0-15.0); WHITE BLOOD COUNT (AUTO) 8.2 K/uL (4.8-10.8)
[2022-06-08 17:30] LABS: ANION GAP 8 (5-15); CALCIUM 8.4 mg/dL (8.4-11.0); CHLORIDE 107 mmol/L (98-107); CREATININE 1.02 mg/dL (0.55-1.30); GLUCOSE 111 mg/dL (70-99); POTASSIUM 3.9 mmol/L (3.5-5.1); SODIUM SERUM 144 mmol/L (136-145); UREA NITROGEN, BLOOD 25 mg/dL (8-21)
[2022-06-08 17:37] LABS: ALANINE AMINOTRANSFERASE 36 U/L (12-78); ASPARTATE AMINOTRANSFERASE 23 U/L (10-37); LIPASE 80 U/L (73-393); TOTAL BILIRUBIN 0.3 mg/dL (0.0-1.0)
--- NOTE | 2022-06-08 18:00 | NUR ---
first encounter to pt at this time. pt biba ALS with hx HTN renal, dementia, cardiac disease here c/o dysuria x 1 week. pt is AOx4, rsp even and unlabored. labs drawn and sent. assisted pt to bedpan for UA. fully vaxxed. pt attached to ekg monitor. no pending orders at this time. awaiting ERMD to assess. vss nad wctm.
--- NOTE | 2022-06-08 18:56 | NUR ---
urine was contaminated with stool.
--- NOTE | 2022-06-08 19:18 | NUR ---
care endorsed to FABIAN kamara
--- NOTE | 2022-06-08 19:30 | NUR ---
FABIAN KINNEY REPORT FROM FABIAN TREVIZO. LAURA AT BEDSIDE. NO C/O DISCOMFORT AT THIS TIME. UA CATH NEEDED FOR LAB TEST
--- NOTE | 2022-06-08 20:29 | NUR ---
QUICK CATH UA COLLECTED AND SENT TO LAB
[2022-06-08 21:14] LABS: BILIRUBIN,URINE NEGATIVE (NEGATIVE); CLARITY/URINE CLEAR (CLEAR); COLOR,URINE YELLOW (YELLOW); GLUCOSE,URINE NEGATIVE (NEGATIVE); KETONES,URINE NEGATIVE (NEGATIVE); LEUKOCYTE ESTERASE ,URINE NEGATIVE (NEGATIVE); NITRITE, URINE NEGATIVE (NEGATIVE); PH,URINE 5.5 (5.0-8.0); PROTEIN URINE 1+ (NEGATIVE); UROBILINOGEN,URINE 0.2 (0.2-1.0)
[2022-06-08 21:21] LABS: BLOOD, URINE TRACE (NEGATIVE)
[2022-06-08 21:22] LABS: BACTERIA,URINE FEW /HPF (None Seen); MUCUS,URINE None Seen /LPF (None Seen); RBC,URINE 0-3 /HPF (0-3); WBC,URINE 0-3 /HPF (0-3)
[2022-06-08] MEDS ORDERED: IOHEXOL 350 mgI/mL, 150 ML INFUS..BTL IV ONE (22:02)
[2022-06-08] MEDS ORDERED: iohexoL 300 mgI/mL, 150 ML INFUS..BTL IV ONE (23:02)
--- NOTE | 2022-06-08 23:20 | NUR ---
TO CATSCAN VIA [facility]ERNEY WITH TECH. X5 ATTEMPTS FOR 20G IV ACCESS WITHOUT SUCCESS. FAMILY LIVING EDUCATOR WILL USE IV 22G TO LEFT WRIST FOR CONTRAST
--- NOTE | 2022-06-08 23:54 | NUR ---
RETURN FROM CT SCAN VIA [facility] WITH Signicat.
[2022-06-09] MEDS ORDERED: SENN8.6T19 PO (00:09)
[2022-06-09] MEDS ORDERED: CARV6.2554 PO (00:09)
[2022-06-09] MEDS ORDERED: MORP15TA60 PO (00:09)
[2022-06-09] MEDS ORDERED: AMLO2.5T2 PO (00:09)
[2022-06-09] MEDS ORDERED: HYDR-3917 PO (00:09)
[2022-06-09] MEDS ORDERED: LIP20 PO (00:09)
[2022-06-09] MEDS ORDERED: POLY17PO4 PO ×3 (03:07→03:43)
--- NOTE | 2022-06-09 04:33 | NUR ---
PT RESTING COMFORTABLY. NO C/O DISCOMFORT AT THIS TIME. CONTINUED MONITORING
--- NOTE | 2022-06-09 06:33 | NUR ---
PT RESTING COMFORTABLY. NO C/O OF DISCOMFORT AT THIS TIME. VSS. CONTINUED MONITORING
--- NOTE | 2022-06-09 07:17 | NUR ---
[facility], 1ST RESCUE, STATED THAT CAN NOT ACCEPT PT WITHOUT HARD COPY AUTH FOR TRANSPORT.
--- NOTE | 2022-06-09 07:32 | NUR ---
RECEIVED PT, ALERT, TALKING. RN WILL OBTAIN BREAKFAST AND MAINTAIN PT. PT IS COMFORTABLE WITH A FEW OF HER OWN BLANKETS.
--- NOTE | 2022-06-09 08:38 | NUR ---
LARGE BM, PT CLEANED, NEW LINENS.
--- NOTE | 2022-06-09 11:24 | NUR ---
Gisella: [phone] family called to find out status of transportation home.
--- NOTE | 2022-06-09 12:18 | NUR ---
RN CALLED FAMILY, AND FAMILY WILL COME CAMOUFLAGE ASSEMBLER PT.
--- NOTE | 2022-06-09 13:15 | NUR ---
Patient given written and verbal discharge instructions and verbalizes understanding. ER MD discussed with patient the results and treatment provided. Patient in stable condition. ID arm band removed. IV catheter removed intact and dressing applied, no active BLEEDING. Patient educated on pain management and to follow up with PMD. Pain Scale 0/10 . Opportunity for questions provided and answered. Medication side effect fact sheet provided.
[2022-06-09 13:36] VITALS: BP_SYST 127
== END 2022-06-09 13:15 | disposition home or self-care (01) ==
LOC: SED 15:57
DX: K59.00 Constipation, unspecified (principal); R10.32 Left lower quadrant pain; R42 Dizziness and giddiness; Z79.899 Other long term (current) drug therapy
CPT/HCPCS: 99285; 71275; 80053; 81000; 83690; 85025; 36415; 74175; 72191; 76376; Q9967

== ENCOUNTER 2022-08-14 10:15 | Inpatient (IN) | payer OTHER ==
[~2022-08-14] VITALS: Ht 147.3 cm; Wt 38.6 kg
[~2022-08-14 10:15] MED LIST changes: +AMLO2.5T2 PO; -AMOX-426 PO; +CARV6.2554 PO; -CLOP75TA32 PO; -GALA4TAB PO; -HYDR-3698 PO; +HYDR-3917 PO; +LIP20 PO; +MORP15TA60 PO; -NIFE60TA83 PO; +POLY17PO4 PO; -ROSU40TA PO; +SENN8.6T19 PO
--- NOTE | 2022-08-14 10:15 | NUR ---
Patient to ER bed 5 to gown for evaluation. Side rails up. Report given to Deborah PERALTA.
[2022-08-14 10:19] VITALS: BP_SYST 153
--- NOTE | 2022-08-14 10:24 | NUR ---
PT BROUGHT BY BLS FROM HOME. CAREGIVER STATES PT HAS BEEN EXPERIENCING N/V/D FOR SEVERAL DAYS. PT IS REFUSING TO EAT AND THERE ARE CONCERNS ABOUT FTT. PATIENT HAS HX OF DEMENTIA, HTN, CONSTIPATION AND DEPRESSION. PATIENT IS UNRESPONSIVE TO QUESTIONS AT THIS TIME. VSS, PT IN NO ACUTE DISTRESS. CARE WILL BE PROVIDED ORDERED.
[2022-08-14] MEDS ORDERED: NOR10 PO (10:42)
[2022-08-14] MEDS ORDERED: DOCU250C75 PO (10:45)
[2022-08-14] MEDS ORDERED: SACC250C3 PO (10:45)
[2022-08-14] MEDS ORDERED: PSYL3.4P5 PO (10:45)
--- NOTE | 2022-08-14 10:53 | NUR ---
ER Dr. GARCIA at bedside examining patient.
[2022-08-14] MEDS ORDERED: KETOROLAC TROMETHAMINE 15 MG VIAL IVP ONE (11:00)
[2022-08-14 11:26] LABS: BASOPHILS # (AUTO) 0.1 K/uL (0.0-0.2); BASOPHILS % (AUTO) 0.6 % (0.0-2.0); EOSINOPHILS % (AUTO) 0.3 % (0.0-4.0); HEMATOCRIT 38.8 % (36-48); HEMOGLOBIN 13.2 g/dL (12.0-16.0); LYMPHOCYTES # (AUTO) 0.7 K/uL (1.0-5.5); LYMPHOCYTES % (AUTO) 5.3 % (20.5-51.5); MEAN CORPUSCULAR HEMOGLOBIN 32 pg (27-31); MEAN CORPUSCULAR HGB CONC 34 % (32-36); MEAN CORPUSCULAR VOLUME 93 fL (79.0-98.0); MONOCYTES # (AUTO) 0.6 K/uL (0.0-1.0); MONOCYTES % (AUTO) 4.5 % (1.7-9.3); NEUTROPHILS # (AUTO) 12.3 K/uL (1.8-7.7); NEUTROPHILS % (AUTO) 89.3 % (40.0-70.0); PLATELET COUNT (AUTO) 185 K/uL (130-430); RED BLOOD CELL COUNT(AUTO) 4.17 MIL/uL (4.2-6.2); RED CELL DISTRIBUTION WIDTH 14.5 % (9.0-15.0); WHITE BLOOD COUNT (AUTO) 13.7 K/uL (4.8-10.8)
[2022-08-14 11:30] LABS: ANION GAP 14 (5-15); CALCIUM 9.2 mg/dL (8.4-11.0); CHLORIDE 101 mmol/L (98-107); CREATININE 1.29 mg/dL (0.55-1.30); GLUCOSE 229 mg/dL (70-99); POTASSIUM 3.2 mmol/L (3.5-5.1); UREA NITROGEN, BLOOD 21 mg/dL (8-21)
[2022-08-14 11:39] LABS: ALANINE AMINOTRANSFERASE 12 U/L (12-78); ALBUMIN 3.1 g/dL (3.4-4.8); ASPARTATE AMINOTRANSFERASE 18 U/L (10-37); TOTAL BILIRUBIN 0.8 mg/dL (0.0-1.0)
[2022-08-14] MEDS ORDERED: NACL 0.9% 1,000 ML IV ONE (12:00)
[2022-08-14] MEDS ORDERED: ONDANSETRON HCL 4 MG/2 ML VIAL IVP ONE (12:00)
--- NOTE | 2022-08-14 12:03 | NUR ---
Patient transported to radiology via GURNEY, accompanied by STAFF.
[2022-08-14 12:08] LABS: BILIRUBIN,URINE NEGATIVE (NEGATIVE); BLOOD, URINE 2+ (NEGATIVE); CLARITY/URINE CLOUDY (CLEAR); COLOR,URINE YELLOW (YELLOW); GLUCOSE,URINE NEGATIVE (NEGATIVE); KETONES,URINE NEGATIVE (NEGATIVE); LEUKOCYTE ESTERASE ,URINE 3+ (NEGATIVE); NITRITE, URINE NEGATIVE (NEGATIVE); PROTEIN URINE 2+ (NEGATIVE)
--- NOTE | 2022-08-14 12:40 | NUR ---
COVID SWAB OBTAINED AND SENT TO LAB.
[2022-08-14] MEDS ORDERED: cefTRIAXone 1 GM IVPB PREMIX 50 ML IV ONE (14:00)
--- NOTE | 2022-08-14 14:00 | NUR ---
Medication reconciliation completed with information provided by PATIENT'S DAUGHTER. Any prior medication reconciliation on file was reviewed and corrected.
[2022-08-14] MEDS ORDERED: KCL 20 mEq in D5/0.45NS 1000mL 1,000 ML IV ONE (14:15)
[2022-08-14 14:26] LABS: BACTERIA,URINE MODERATE /HPF (None Seen); RBC,URINE 20-50 /HPF (0-3); WBC,URINE >100 /HPF (0-3)
[2022-08-14] MEDS ORDERED: PANTOPRAZOLE SODIUM 40 MG/VIAL (PROTONIX) IVP ONE (14:45)
[2022-08-14] MEDS ORDERED: D5/0.45 NS 1,000 ML IV ONE (14:45)
--- NOTE | 2022-08-14 15:45 | NUR ---
Admit bed requested Patient will be admitted to care of Dr. BECKHAM. Admitted to TELEMETRY unit. Diagnosis GASTROENTERITIS Inpatient (Yes or No) YES Observation (Yes or No) NO Orientation concerns or request close to nursing station (Yes or No) NO Covid Status NEGATIVE On vent or bipap NO Isolation requirements NO Needs a sitter NO From Home (Yes or if No enter name of facility) [facility] Requires Dialysis (Yes or No) NO Med Rec Completed (Yes of No) YES
[2022-08-14 16:50] VITALS: BP_SYST 137
--- NOTE | 2022-08-14 16:50 | NUR ---
ADMISSION NOTE Received patient from ER via [place], received report from Luzma PERALTA. Patient admitted with diagnosis of gastroenteritis. Patient oriented to hospital routine, call light, toileting and safety. Patient resting in bed with eyes closed. No sign of distress or pain.
[2022-08-14] MEDS ORDERED: LEVOFLOXACIN 250 MG/D5W 50 ML IV ONE (17:00)
--- NOTE | 2022-08-14 17:04 | NUR ---
Patient will be admitted to care of DR. BECKHAM. Admitted to TELEMETRY unit. Will go to room 125A. Belongings list completed. Complete and up to date summary report printed. SBAR report given at bedside with opportunity for questions.
[2022-08-14 17:50] VITALS: BP_SYST 137
--- NOTE | 2022-08-14 19:09 | NUR ---
CLOSING NOTE PATIENT REMAINS STABLE RESTING WITH EYES CLOSED, REFUSED DINNER SKIN INTACT. IV RUNNING PER ORDERS. SPOKE WITH FAMILY ON PHONE FOR PLAN OF CARE. ALL NEED MADE AT THIS TIME SAFETY CHECKS MADE. BED AT LOW POSITION CALL LIGHT IN REACH WILL GIVE PM SHIFT NURSE REPORT.
--- NOTE | 2022-08-14 19:20 | NUR ---
Received report from AM shift RN, and assumed patient care. Checked the POLST paper in the patient's chart, reviewed the code status and it is signed for DNR. Will change the code status on [facility] CAMMIE. Informed charge nurse (Villa).
[2022-08-14 20:00] VITALS: BP_SYST 130
--- NOTE | 2022-08-14 21:00 | NUR ---
Reinforced the orientation on patient, patient showed signs of confusion. No other complications noted at the moment, will reinforce if needed throughout the shift.
[2022-08-14] MEDS: metroNIDAZOLE 500 mg/NS 100 ML IV SCH (22:12)
--- NOTE | 2022-08-14 22:45 | NUR ---
RAILROAD BRAKE REPAIRER at bedside performed linen changes and changed diapers. No other complications noted at the moment, and will reinforce if needed throughout the shift.
[2022-08-15 01:13] VITALS: BP_SYST 113
[2022-08-15] MEDS: metroNIDAZOLE 500 mg/NS 100 ML IV SCH ×3 (05:05→22:47)
[2022-08-15] MEDS: LEVOFLOXACIN 250 MG/D5W 50 ML IV SCH (09:00)
[2022-08-15 09:27] VITALS: BP_SYST 157
[2022-08-15 12:37] VITALS: BP_SYST 144
[2022-08-15] MEDS ORDERED: ONDANSETRON HCL 4 MG/2 ML VIAL IM PRN (14:00)
[2022-08-15] MEDS ORDERED: ACETAMINOPHEN 325 MG TABLET PO PRN (14:00)
--- NOTE | 2022-08-15 14:10 | NUR ---
PT PULLED OUT IV SITE. PLACED NEW IV SITE ON LEFT HAND, 22G, PATENT WITH GOOD BLOOD RETURN. PT TOLERATED PROCEDURE WELL. SITE WRAPPED WITH KERLIX, TO PREVENT PT FROM PULLING OUT HER LINES. PT ALSO REMINDED NOT TO PULL OUT IV TUBING AND IV SITE. PT VERBALIZED UNDERSTANDING, BUT NEEDS REINFORCEMENT D/T ALZHEIMERS HX. WILL MONITOR PT CLOSELY.
[2022-08-15 16:07] VITALS: BP_SYST 154
[2022-08-15] MEDS: D5/0.45 NS 1,000 ML IV SCH (16:51)
[2022-08-15] MEDS ORDERED: KETOROLAC TROMETHAMINE 15 MG VIAL IVP ONE (17:00)
--- NOTE | 2022-08-15 17:01 | NUR ---
PAGED DR. BECKHAM TWICE. RECEIVED CALL BACK, INFORMED MD PT IS HAVING ABDOMINAL PAIN AND NO BM IN MY SHIFT. NEW ORDERS FOR GI CONSULT- DR. MEYERS, TORADOL X1, CARAFATE TID. Addendum: 08/15/22 at 1703 by [facility], FABIAN RN ALSO REPORTED TO MD, PT HAS HAD NO APPETITE AND NOT EATING. VERBALIZED UNDERSTANDING.
--- NOTE | 2022-08-15 17:04 | NUR ---
CONSULTATION PAGED0= REASON FOR CONSULTATION:GASTRITIS WAS CONSULT CALLED?Y PERSON WHO WAS NOTIFIED:SHAKIRA CONSULTING PHYSICIAN:MIRA MAIN SURESHT (MURPHY PATTON MACHINE PAINT MIXER) MUSHROOM CULTIVATOR SPECIALTY:GI MUSHROOM CULTIVATOR PHONE NUMBER:[phone] REQUESTING PHYSICIAN:JENNY SCHROEDER
[2022-08-15] MEDS: SUCRALFATE 1 GM TABLET PO SCH (17:16)
[2022-08-15 20:00] VITALS: BP_SYST 151
--- NOTE | 2022-08-15 23:34 | NUR ---
Received call from daughter who stated that her mom has been taking morphine PO for 20 years and that she was very concerned about her mom's pain that she observed earlier when she was at bedside. Patient currently reporting abdominal pain unrelieved by Tylenol and one time Toradol earlier. Informed Dr. Lane of patient's pain. Received order to continue patient's home med morphine PO from med rec, and for PRN hydrocodone-Acetaminophen 5-325mg.
[2022-08-15] MEDS ORDERED: HYDROcodone/ACETAMIN 5-325 MG TAB (NORCO/ VICODIN) PO PRN (23:45)
[2022-08-16 00:15] VITALS: BP_SYST 166
[2022-08-16] MEDS: MORPHINE SULFATE 15 MG TABLET.ER PO SCH ×3 (01:32→22:08)
[2022-08-16] MEDS: metroNIDAZOLE 500 mg/NS 100 ML IV SCH ×3 (06:16→22:08)
[2022-08-16] MEDS: SUCRALFATE 1 GM TABLET PO SCH ×3 (06:16→18:19)
--- NOTE | 2022-08-16 07:30 | NUR ---
Closing Patient resting in bed, unlabored breathing on room air. Denies pain currently. Received call from daughter this morning. Updated daughter that patient's home med morphine was continued and that she currently reports no pain. Daughter asked for physician to call to give her an update when possible.
[2022-08-16 07:46] VITALS: BP_SYST 138
[2022-08-16] MEDS: LEVOFLOXACIN 250 MG/D5W 50 ML IV SCH (08:45)
--- NOTE | 2022-08-16 09:03 | NUR ---
PT REFUSED TO EAT BREAKFAST EVEN WHEN ASSISTANCE IS OFFERED. SHE SAID SHE JUST DOES NOT WANT TO EAT. DENIES ABDOMINAL PAIN .
[2022-08-16] MEDS: D5/0.45 NS 1,000 ML IV SCH ×2 (09:25→23:14)
[2022-08-16] MEDS ORDERED: POTASSIUM CHLORIDE 10 MEQ TAB.PRT.SR PO ONE (09:45)
[2022-08-16 12:44] VITALS: BP_SYST 145
--- NOTE | 2022-08-16 14:19 | NUR ---
PAGED DR BECKHAM TO TELL HIM THAT PT'S GFR PER MINE GEOLOGIST LEONARDO IS LOW, WANTS CLEARANCE FROM .
[2022-08-16] MEDS ORDERED: iohexoL 350 mgI/mL, 100 ML INFUS..BTL IV ONE (15:07)
[2022-08-16 16:50] VITALS: BP_SYST 139
--- NOTE | 2022-08-16 18:24 | NUR ---
pt's daughter made aware that ct a/p was done but she has to talk to the doctor to give her the result and poc.
--- NOTE | 2022-08-16 18:26 | NUR ---
pt are 1 cup of yoghurt for dinner.
[2022-08-16 20:20] VITALS: BP_SYST 144
[2022-08-17] VITALS (8 sets, daily range): BP systolic 125–174
[2022-08-17] MEDS: metroNIDAZOLE 500 mg/NS 100 ML IV SCH ×3 (06:21→21:18)
[2022-08-17] MEDS: SUCRALFATE 1 GM TABLET PO SCH ×3 (06:22→17:37)
[2022-08-17 07:57] LABS: INR 1.1 (0.8-1.2); PROTHROMBIN TIME 11.6 SECS (9.5-12.5)
[2022-08-17] MEDS: LEVOFLOXACIN 250 MG/D5W 50 ML IV SCH (09:41)
[2022-08-17] MEDS: MORPHINE SULFATE 15 MG TABLET.ER PO SCH ×2 (09:42→21:17)
[2022-08-17 13:09] LABS: ANION GAP 10 (5-15); BILIRUBIN,DIRECT 0.1 mg/dL (0.0-0.3); CALCIUM 8.6 mg/dL (8.4-11.0); CHLORIDE 102 mmol/L (98-107); GLUCOSE 101 mg/dL (70-99); POTASSIUM 3.1 mmol/L (3.5-5.1); TOTAL BILIRUBIN 0.4 mg/dL (0.0-1.0); UREA NITROGEN, BLOOD 8 mg/dL (8-21)
[2022-08-17 13:10] LABS: ALANINE AMINOTRANSFERASE 15 U/L (12-78); ASPARTATE AMINOTRANSFERASE 27 U/L (10-37)
[2022-08-17] MEDS ORDERED: traMADol HCL HCL 50 MG TABLET (ULTRAM) PO PRN (14:15)
--- NOTE | 2022-08-17 14:45 | NUR ---
FIRST LINE SUPERVISOR MICHAEL Parker responded to a Hospice eval order MICHAEL Parker met with patient's daughter Gisella at bedside. MICHAEL Parker completed introductions, reason for referral, provided business card, and she was open to contact. Patient's daughter Gisella expressed wanting her mother to return home. She also shares patient received hospice services from [facility] in the past, but was "taken off" and placed on palliative care. She expressed not wanting to return to the same hospice provider. According to patient she is receiving home health services, but was unable to provide the name of the [facility]. She also shared patient has a hospital bed and she provides care as needed for patient. NEETAW provded Gisella with HCP/[employer] number to address discharge questions/concerns. ACSW will continue to be available as needed
--- NOTE | 2022-08-17 14:58 | NUR ---
SHELLFISH HARVESTER MICHAEL Parker responded to a hospice eval order from Dr. Garcia. MICHAEL Parker faxed packet for review to [facility] P: F: MICHAEL Parker will continue to be available as needed
[2022-08-17] MEDS: D5/0.45 NS 1,000 ML IV SCH (17:38)
--- NOTE | 2022-08-17 20:00 | NUR ---
RECEIVED PT IN BED. PT AWAKE AND ALERT. DAUGHTER AT BEDSIDE. POOR INTAKE PER DAUGHTER. ENCOURAGED TO DRINK ENSURE. INCONTINENT OF URINE AND BM- BROWN SOFT/LOOSE STOOL. NO DIARRHEA. UNABLE TO COLLECT STOOL FOR C-DIFF. V/S STABLE AFEBRILE. TELE- NSR.
[2022-08-18] VITALS: BP_SYST 140
[2022-08-18] MEDS: metroNIDAZOLE 500 mg/NS 100 ML IV SCH ×2 (06:13→14:43)
[2022-08-18] MEDS: SUCRALFATE 1 GM TABLET PO SCH ×3 (06:14→17:00)
--- NOTE | 2022-08-18 06:34 | NUR ---
IVF D51/2NS AT 60 ML/HR. NO S/SX OF ANY DISTRESS.
--- NOTE | 2022-08-18 07:49 | NUR ---
OPENING NOTES Pt is currently awake and alert, histology tech is at bedside. Pt. is not very cooperative and is refusing to have ultrasound, educated pt. on importance of us to continue plan of care, pt. is still not cooperating, tech is attempting to work around the patient, no signs of acute distress. Fall precautions in place, will continue to monitor.
[2022-08-18 08:00] VITALS: BP_SYST 137
[2022-08-18] MEDS: MORPHINE SULFATE 15 MG TABLET.ER PO SCH (10:27)
[2022-08-18] MEDS: LEVOFLOXACIN 250 MG/D5W 50 ML IV SCH (10:30)
[2022-08-18 13:45] VITALS: BP_SYST 133
--- NOTE | 2022-08-18 14:09 | NUR ---
Dietitian Recommendations * Regular diet, Ensure TID, Keo BID, Banatrol BID (supplements yield 1230kcal/day, 65g protein/day) * Encourage good PO intake * Adhere to pt preferences LP, MS, RD Please refer to Nutrition F/U for details.
--- NOTE | 2022-08-18 14:09 | NUR ---
Nutrition F/U Admitting Diagnosis Gastroenteritis Reviewed Pertinent Medical/Surgical Hx Medical Record, Patient NEW Medical History Comment: Per EMR review, PMH of CRF, CHF, HTN, dyslipidemia, bilat renal stent, gastritis, depression, dementia. Pt admitted for N/V/D, Dx of gastroenteritis. Per MD note 08/17/22, pt is bedridden for past year d/t hip Sx. Pt's daughter is primary spectroscopist-- hospital bed in pt's home. Per MD Note 08/17, CT Angiogram completed found severe abdominal aortic stenosis, causing mesenteric angina -- possible cause of abd pain and decreased appetite. D/C plan for hospice. Subjective Information Handbag Designer rounded to pt bedside, pt appeared drowsy and fatigued at time of visit. Pt stated appetite is better than last visit, has been eating "a little bit" of food and ONS. Pt reported no issues w/ N/V/C/D and no abd pain. CBW 100.8 lbs via bedscale wt -- unsure of accuracy d/t inconsistent w/ pt's physical appearance. Handbag Designer spoke w/ RN, who attests to pt's poor appetite -- consumed 15% of breakfast today. RN reports improvement in N/V/D, with soft, formed stool. LBM 08/18/22. RN stated abd pain has improved, however pt may be feeling radiating pain from prior hip Sx. NEW Current Diet Order/Nutrition Support Regular, Ensure TID, Keo BID, Banatrol BID x 1 day Patient/Significant Other Able To Verbalize Education Provided Not Indicated Pertinent Medications Morphine Sulfate, Carafate, Zofran, D5 NS IV @ 60 (245kcal/day) NEW Pertinent Labs Na 140 WNL, K 3.2 L, BUN 8 WNL - improved, CRE 0.8 WNL - improved, BP 145/66 H, WBC 13.7 H Height (Feet) 4 feet Height (Inches) 10.00 inches Weight (Pounds) 85 pounds Weight (Calculated Kilograms) 38.337905 kilograms Patient Weight 38.555 kg Body Mass Index 17.76 kg/m2 %IBW 89 [place]/Adjusted Body Weight 95lbs/43.2kg IBW Recent Weight Change Unable to verify - pt unsure of UBW Weight Status Underweight Gastrointestinal Symptoms None Food Allergies No Current % PO Negligible <25% Estimated Energy Expenditure (kcals/day) 2756-3398 (30-35kcal/kg IBW d/t malnutrition, wt gain promotion) Estimated Protein Required (g/day) 52-65 (1.2-1.5g/kg IBW d/t malnutrition, wt gain promotion) Estimated Fluid Required (l/day) Refer to MD d/t Dx of CRF, CHF Problem/Etiology/Signs/Symptoms Inadequate oral intake R/T inability to manage self-care AEB average PO intake of 33%. (MODIFIED, ONGOING) Expected Outcomes/Goals Monitor appetite and PO intakes w/ goal of meeting >50% of estimated nutritional needs, labs trending WNL, normal GI function, and skin integrity/wt maintenance. Dietitian Recommendations * Regular diet, Ensure TID, Keo BID, Banatrol BID (supplements yield 1230kcal/day, 65g protein/day) * Encourage good PO intake * Adhere to pt preferences Follow Up High Risk: F/U in 2-3 days Follow Up By Aug 21, 2022
[2022-08-18] MEDS: D5/0.45 NS 1,000 ML IV SCH (14:48)
[2022-08-18 16:00] VITALS: BP_SYST 141
[2022-08-18 16:44] VITALS: BP_SYST 143
--- NOTE | 2022-08-18 17:45 | NUR ---
PT. IS AAOX2 oriented to self and place, otherwise confused, easily reoriented. Pt. is being discharged home with [facility] phone number [phone]. Informed Gisella of time of transfer and went over plan of care, Gisella stated she understood all instructions and had no further questions. Patient reports no pain at this time. Patient was sent home wearing the gown from home and diapers from home, no other belongings. IV's were removed with catheter cannula intact upon removal, dry dressing applied. Skin intact upon discharge.
--- NOTE | 2022-08-20 08:20 | NUR ---
LATE ENTRY Contact occurred 08/18/2022 MICHAEL Parker was contacted by Research Instrumentation Technician Kris for [facility] sharing consents had been completed by patient's daughter Gisella. He also shared appropriate DME was being delivered to marlys's home and they were awaiting DC orders. MICHAEL parker provided update to mid level business analyst including [employer].
== END 2022-08-18 23:47 | disposition hospice, home (50) | DRG 392 ==
LOC: SED 10:15 → STU 14:38
PROVIDERS: ADMIT Specialist; ATTEND Specialist
DX: K52.9 Noninfective gastroenteritis and colitis, unspecified (principal); N39.0 Urinary tract infection, site not specified; K29.70 Gastritis, unspecified, without bleeding; I71.40 Abdominal aortic aneurysm, without rupture, unspecified; F03.90 Unspecified dementia, unspecified severity, without behavioral disturbance, psychotic disturbance, mood disturbance, and anxiety; K21.9 Gastro-esophageal reflux disease without esophagitis; F32.A Depression, unspecified; E78.5 Hyperlipidemia, unspecified; I12.9 Hypertensive chronic kidney disease with stage 1 through stage 4 chronic kidney disease, or unspecified chronic kidney disease; N18.9 Chronic kidney disease, unspecified; E86.0 Dehydration; Z20.822 Contact with and (suspected) exposure to COVID-19; Z79.899 Other long term (current) drug therapy
CPT/HCPCS: 36415; 71045; 72191; 74175; 76376; 76700-TC; 80048; 80053; 80076; 81000; 82977; 83605; 83690; 84484; 85025; 85610-TC; 87040; 87086; 93005; 96365; 96375; 99291; C9113; G0378; J0696; J1885; J1956; J2405; J3490; Q9967